=== PATIENT | male | born 1955 | race Caucasian/White ===

== ENCOUNTER 2016-08-20 08:56 | Observation (INO) | payer OTHER ==
[2016-08-20] MEDS ORDERED: DIAZEPAM 5 MG TAB PO ONE (09:00)
[2016-08-20] MEDS ORDERED: FAMOTIDINE 20 MG TAB PO ONE (09:00)
[2016-08-20] MEDS ORDERED: diphenhydrAMINE 25 MG CAP PO ONE ×2 (09:00→09:18)
[2016-08-20] MEDS ORDERED: NS 1,000 ML IV ONE (09:00)
[2016-08-20] MEDS ORDERED: ASPIRIN EC 325 MG TAB PO ONE ×2 (09:00→09:18)
[2016-08-20] MEDS ORDERED: FAMOTIDINE 20 MG TAB ONE (09:18)
[2016-08-20] MEDS ORDERED: DIAZEPAM 5 MG TAB ONE (09:19)
--- NOTE | 2016-08-20 09:21 | CPEKG ---
Heart Rate: 91 RR Interval: 659 QRSD Interval: 90 QT Interval: 352 QTC Interval: 434 QRS Nucla: -50 T Wave Nucla: -12 EKG Severity - ABNORMAL ECG - EKG Impression: ATRIAL FIBRILLATION, V-RATE 65-122 EKG Impression: INFERIOR INFARCT, AGE INDETERMINATE Electronically Signed By: Jg Simmons 20-Aug-2016 19:38:57
[2016-08-20 09:50] LABS: ABSOLUTE IMMATURE GRANULOCYTES 0.08 10^3/uL (0.00-0.10); ADD DIFF? NO; ADD MORPH? NO; ADD SCAN? NO; ATYPICAL LYMPHOCYTE FLAG 10 (0-99); FRAGMENT RBC FLAG 0 (0-99); HEMATOCRIT 47.3 % (40.0-51.0); HEMOGLOBIN 15.9 g/dL (13.7-17.5); LEFT SHIFT FLG 0 (0-99); LIPEMIA HEMOLYSIS FLAG 80 (0-99); MEAN CELL HEMOGLOBIN 28.8 pg (27.9-34.1); MEAN CELL HEMOGLOBIN CONCENTR. 33.6 g/dL (32.4-36.7); MEAN CELL VOLUME 85.5 fL (81.5-99.8); MEAN PLATELET VOLUME 9.8 fL (8.7-11.7); PLATELET CLUMPS FLAG 0 (0-99); PLATELET COUNT 250 10^3/uL (150-400); RED BLOOD CELL COUNT 5.53 10^6/uL (4.40-6.38); RED CELL DISTRIBUTION WIDTH 15.6 % (11.5-15.2)
[2016-08-20 09:59] LABS: INR 1.43 (0.83-1.16); PROTIME(PATIENT) 17.4 SEC (12.0-15.0)
[2016-08-20 10:37] LABS: ANION GAP 7 mEq/L (8-16); CALCIUM 8.5 mg/dL (8.5-10.4); CARBON DIOXIDE 26 mEq/l (22-31); CHLORIDE 109 mEq/L (97-110); CHOLESTEROL 256 mg/dL (140-220); CHOLESTEROL/HDL RATIO 6.74 RATIO (1.00-4.97); CREATININE 0.9 mg/dL (0.7-1.3); GLOMERULAR FILTRATION RATE > 60; GLUCOSE 94 mg/dL (70-100); HIGH DENSITY LIPOPROTEIN 38 mg/dL (40-65); LDL/HDL RATIO 5.11 RATIO (1.00-3.64); LOW DENSITY LIPOPROTEIN 194 mg/dL (80-100); MAGNESIUM 2.1 mg/dL (1.6-2.3); NON-HIGH DENSITY LIPOPROTEIN 218 mg/dL (90-129); POTASSIUM 4.5 mEq/L (3.5-5.2); SODIUM 142 mEq/L (134-144); TRIGLYCERIDE 123 mg/dL (40-150); VERY LOW DENSITY LIPOPROTEINS 24 mg/dL (8-25)
[2016-08-20 10:41] LABS: DIGOXIN 0.5 ng/mL (0.8-2.0)
[2016-08-20] MEDS ORDERED: LIDOCAINE 1% 30 ML SDV ONE (10:45)
[2016-08-20] MEDS ORDERED: IOPAMIDOL (ISOVUE-370) 150 ML BTL IV ONE ×2 (10:46→11:42)
[2016-08-20] MEDS ORDERED: fentaNYL 100 MCG/2 ML INJ ONE ×2 (10:46→11:38)
[2016-08-20] MEDS ORDERED: MIDAZOLAM 2 MG/2 ML VIAL ONE ×2 (10:46→11:38)
[2016-08-20] MEDS ORDERED: BIVALIRUDIN 250 MG/5 ML VIAL IV ONE (11:42)
[2016-08-20] MEDS ORDERED: CLOPIDOGREL BISULFATE 75 MG TAB ONE (12:16)
[2016-08-20] MEDS ORDERED: HYDROCODONE/APAP 5/325 TAB PO PRN (12:38)
[2016-08-20] MEDS ORDERED: LORazepam 2 MG/ML INJ IVP PRN (12:38)
[2016-08-20] MEDS ORDERED: ATROPINE SULFATE 1 MG/10 ML SYR IVP PRN (12:38)
[2016-08-20] MEDS ORDERED: NITROGLYCERIN 0.4 MG BTL SL PRN (12:38)
[2016-08-20] MEDS ORDERED: TEMAZEPAM 15 MG CAP PO PRN (12:38)
[2016-08-20] MEDS ORDERED: OXYCODONE/APAP 5/325 TAB PO PRN (12:38)
[2016-08-20] MEDS ORDERED: CLOPIDOGREL BISULFATE 75 MG TAB PO ONE (12:38)
[2016-08-20] MEDS ORDERED: ONDANSETRON 4 MG/2 ML VIAL IVP PRN (12:38)
--- NOTE | 2016-08-20 12:45 | CPEKG ---
Heart Rate: 100 RR Interval: 600 QRSD Interval: 86 QT Interval: 388 QTC Interval: 501 QRS [place]: -36 T Wave [place]: 31 EKG Severity - ABNORMAL ECG - EKG Impression: ATRIAL FIBRILLATION, V-RATE 86-119 EKG Impression: INFERIOR INFARCT, AGE INDETERMINATE EKG Impression: PROLONGED QT INTERVAL WHEN CORRECTED FOR RATE U WAVE MAY CONFOUND Electronically Signed By: Jg Simmons 20-Aug-2016 19:39:53
[2016-08-20] MEDS ORDERED: predniSONE 1 MG TAB PO SCH (18:00)
[2016-08-20] MEDS ORDERED: DIGOXIN 250 MCG TAB PO ONE (19:00)
--- NOTE | 2016-08-20 21:27 | CPIP ---
[f rep st] INVASIVE CARDIAC PROCEDURE DATE OF PROCEDURE: 08/20/2016 PROCEDURES: 1. Coronary angiography. 2. Left ventriculography. 3. Stenting of right coronary artery with Promus drug-eluting stent. INDICATIONS: 1. Class 2-3 angina. 2. Abnormal nuclear stress test with inferior ischemia that is intermediate risk in severity. ACCESS: The patient was prepped and draped in a sterile fashion. 1% lidocaine was used to anestheti ze the right inguinal region. A 6-Honduran introducer sheath was placed selectively into the right com mon femoral artery via modified Seldinger technique. CORONARY ANGIOGRAPHY: A 6-Honduran JL4 was advanced to left main coronary artery and images obtained. The left main coronary artery bifurcated into the LAD and circumflex coronary arteries. The left ma in coronary artery was relatively short. The left main coronary artery appeared normal. The left an terior descending coronary artery gave rise to one prominent diagonal branch. The left anterior desc ending coronary artery was diffusely diseased. In the mid vessel, there was a segmental 50% stenosis present. The first diagonal artery was a large vessel. The first diagonal artery had mild diffuse disease throughout the proximal segment. There was no stenosis greater than 20%. The circumflex cor onary artery was a large vessel. The circumflex coronary artery was a nondominant circumflex coronar y artery and had a complement of 2 OM branches. The circumflex coronary artery appeared normal. The OM1 had a proximal 20% stenosis. The OM2 had a proximal 10% stenosis present. A 6-Honduran JR4 was a dvanced to the right coronary artery and images obtained. The right coronary artery was dominant. T he right coronary artery was previously stented in the mid 1 segment. The previously placed stent wa s widely patent with mild in-stent restenosis. In the mid 2 segment, there is an eccentric plaque pr esent approaching 70% to 80% in severity. QCA was performed demonstrating a 79% stenosis. LEFT VENTRICULOGRAPHY: A 6-Honduran pigtail catheter was advanced in the left ventricle and images obt ained. The left ventricle was normal size and had normal systolic function with an estimated ejectio n fraction of 60%. There were no segmental wall motion abnormalities. PERCUTANEOUS CORONARY INTERVENTION: Right coronary artery: A 6-Honduran JR4 was advanced to the right coronary artery and images obtained. Angiography confirmed the presence of a high-grade lesion invo lving the mid 2 segment of the vessel. A loose wire was placed in the distal vessel and position rah ified by angiography. A 3.5 x 28 Synergy drug-eluting stent was then placed across the lesion and de ployed at 16 atmospheres. Followup angiography demonstrated SURI-3 flow and no residual stenosis. T he distal portion of the stent appeared to be inadequately expanded. A 4.0 x 15 Quantum Meeker was taken into the distal portion of the stent and deployed at 18 atmospheres. Followup angiography dem onstrated SURI-3 flow and no residual stenosis. COMPLICATIONS: None. CONCLUSIONS: 1. Two-vessel coronary artery disease. 2. Normal left ventricular systolic function. 3. Status post successful percutaneous coronary intervention of the right coronary artery. /[id number]/MODL
[2016-08-21 03:43] VITALS: O2SAT 92
[2016-08-21 04:46] LABS: % IMMATURE GRANULYOCYTES 0.7 % (0.0-1.1); ABSOLUTE IMMATURE GRANULOCYTES 0.06 10^3/uL (0.00-0.10); ADD DIFF? NO; ADD MORPH? NO; ADD SCAN? NO; ATYPICAL LYMPHOCYTE FLAG 0 (0-99); FRAGMENT RBC FLAG 0 (0-99); HEMATOCRIT 46.4 % (40.0-51.0); HEMOGLOBIN 15.5 g/dL (13.7-17.5); LEFT SHIFT FLG 0 (0-99); LIPEMIA HEMOLYSIS FLAG 80 (0-99); MEAN CELL HEMOGLOBIN 29.1 pg (27.9-34.1); MEAN CELL HEMOGLOBIN CONCENTR. 33.4 g/dL (32.4-36.7); MEAN CELL VOLUME 87.1 fL (81.5-99.8); MEAN PLATELET VOLUME 10.2 fL (8.7-11.7); PLATELET CLUMPS FLAG 0 (0-99); PLATELET COUNT 231 10^3/uL (150-400); RED BLOOD CELL COUNT 5.33 10^6/uL (4.40-6.38); RED CELL DISTRIBUTION WIDTH 15.9 % (11.5-15.2)
[2016-08-21 04:51] LABS: ANION GAP 6 mEq/L (8-16); CALCIUM 8.4 mg/dL (8.5-10.4); CARBON DIOXIDE 24 mEq/l (22-31); CHLORIDE 109 mEq/L (97-110); CREATININE 0.9 mg/dL (0.7-1.3); GLOMERULAR FILTRATION RATE > 60; GLUCOSE 97 mg/dL (70-100); POTASSIUM 4.8 mEq/L (3.5-5.2); SODIUM 139 mEq/L (134-144)
--- NOTE | 2016-08-21 05:54 | CPEKG ---
Heart Rate: 78 RR Interval: 769 QRSD Interval: 96 QT Interval: 364 QTC Interval: 415 QRS [place]: -48 T Wave [place]: 38 EKG Severity - ABNORMAL ECG - EKG Impression: ATRIAL FIBRILLATION, V-RATE 60-106 EKG Impression: INFERIOR INFARCT, AGE INDETERMINATE Electronically Signed By: Jg Simmons 21-Aug-2016 12:15:49
[2016-08-21 07:59] VITALS: BP 126/89; PULSE 78; RESP 21; TEMP 98.1
[2016-08-21] MEDS ORDERED: QUINAPRIL HCL 40 MG PO SCH (09:00)
[2016-08-21] MEDS ORDERED: LISINOPRIL 20 MG TAB PO SCH (09:00)
[2016-08-21] MEDS ORDERED: DILTIAZEM CD 180 MG CAP PO SCH (09:00)
[2016-08-21] MEDS ORDERED: ASPIRIN EC 325 MG TAB PO SCH (09:00)
[2016-08-21] MEDS ORDERED: CLOPIDOGREL BISULFATE 75 MG TAB PO SCH (09:00)
[2016-08-21] MEDS ORDERED: DILTIAZEM HCL 180 MG PO SCH (09:00)
[2016-08-21] MEDS ORDERED: DIGOXIN 250 MCG TAB PO SCH (10:00)
--- NOTE | 2016-08-21 12:38 | GDS ---
[f rep st] DISCHARGE SUMMARY DISCHARGE DIAGNOSES: 1. New onset chest pain, worrisome for CCS class 3 angina, status post left heart catheterization an d percutaneous intervention to the mid right coronary artery on this admission. 2. Dyslipidemia with severe intolerance of statin with noted myalgias. 3. Hypertension. 4. Permanent atrial fibrillation, on warfarin for anticoagulation. 5. Obstructive sleep apnea with compliant use of CPAP. PROCEDURES: 1. 08/20/2016 left heart catheterization which showed a normal-appearing left main, left anterior de scending with 1 prominent diagonal branch, LAD with diffuse disease and mid vessel segmental stenosis of 50%. The first diagonal had mild disease throughout the proximal segment with no stenosis greate r than 20%. The circumflex was a large vessel and appeared normal. There was 1 obtuse marginal with proximal stenosis of 20%. Second obtuse marginal had proximal 10% stenosis. Right coronary artery is dominant and shows a previously stented mid 1 segment. This stent is widely patent with mild in-s tent restenosis. The mid 2 segment has an eccentric plaque of 70% to 80%. QCA shows 79% stenosis. Angiography confirmed high-grade stenosis. He proceeded to 3.5 x 28 Synergy drug-eluting stent place ment. PHYSICIANS: Dr. Morton for intervention. 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 BRIEF HISTORY: Please see dictated note by Dr. Santos for complete details. In brief, the patient i s a 60-year-old male with a history of CAD with PCI to RCA in 2012, WIL, hypertension, and dyslipidem ia, who was seen in outpatient cardiology for chest pain. A nuclear stress test was obtained and nahomy wed an inferior wall reversible defect. He proceeded to left heart catheterization, with results as dictated above. HOSPITAL COURSE: 1. CCS class 3 angina. He is status post percutaneous intervention to the right coronary artery, di stal to previously placed stent. He will be placed on Plavix for a minimum of [address] Morton did review with him data that potentially Plavix may be stopped as early as 6 months. We ar e still awaiting data for [place] studies. 2. Dyslipidemia. He has been severely intolerant to statins. His cholesterol profile on this admis davidson shows total cholesterol 256, LDL 194, HDL of 38, triglycerides of 123. He has agreed to try col esevelam. We are in the process of trying to get him pre-approved for PCSK9 inhibitor. 3. Hypertension. His blood pressures have been mild to moderately elevated with readings in the 142 /87 range overnight. He was advised on home monitoring of his blood pressure. 4. Atrial fibrillation. He is on Coumadin. He is therefore not started on aspirin at this point. We will plan on close followup on his INR. He is to see [facility] in 5 days' time. His INR wa s 1.43 on 08/20/2016. DISCHARGE PHYSICAL EXAM: VITAL SIGNS: Blood pressure 126/89, heart rate 78, respirations 21, O2 sat uration 92%. GENERAL: He is a pleasant male in no apparent distress. EYES: PERRL. HEART: Irregu larly irregular with no rubs, gallops, or murmurs auscultated. LUNGS: Clear. ABDOMEN: Right groin site without ecchymosis or bruit auscultated. Groin sticker was removed. RESULTS PENDING: None. DIET: Cardiac diet recommended. ACTIVITY: Groin precautions were reviewed. He is not to return to work at [employer] for at [employer] t 2 weeks. We will plan to see him back in clinic prior to clearing him for return to work. DISCHARGE MEDICATIONS: Please see medication reconciliation for complete details. His new medicatio ns are clopidogrel and colesevelam. He is being continued on his home digoxin, prednisone, diltiazem , quinapril, warfarin. FOLLOWUP INSTRUCTIONS: 1. Groin precautions. 2. Follow up in clinic on 08/31/2016. /[id number]/MODL
[2016-08-21] MEDS ORDERED: DIGOXIN 125 MCG TAB PO SCH (18:00)
[2016-08-22] MEDS ORDERED: COLESEVELAM HCL 625 MG TAB PO SCH (09:00)
== END 2016-08-21 11:33 | disposition home or self-care (01) ==
LOC: FCATH 08:56 → F2W 12:21
PROVIDERS: ADMIT Internal Medicine Cardiovascular Disease; ATTEND Internal Medicine Cardiovascular Disease
PROC: 027034Z Dilation of Coronary Artery, One Artery with Drug-eluting Intraluminal Device, Percutaneous Approach (ICD-10-PCS; principal; 2016-08-20)
PROC: 4A023N7 Measurement of Cardiac Sampling and Pressure, Left Heart, Percutaneous Approach (ICD-10-PCS; principal; 2016-08-20)
PROC: B2151ZZ Fluoroscopy of Left Heart using Low Osmolar Contrast (ICD-10-PCS; principal; 2016-08-20)
PROC: B2111ZZ Fluoroscopy of Multiple Coronary Arteries using Low Osmolar Contrast (ICD-10-PCS; principal; 2016-08-20)
DX: I25.119 Atherosclerotic heart disease of native coronary artery with unspecified angina pectoris (principal); T82.857A Stenosis of other cardiac prosthetic devices, implants and grafts, initial encounter; E78.5 Hyperlipidemia, unspecified; I10 Essential (primary) hypertension; I48.2 Chronic atrial fibrillation; G47.33 Obstructive sleep apnea (adult) (pediatric); Z79.01 Long term (current) use of anticoagulants
CPT/HCPCS: 92928; 93005; 93458; C1725; C1769; C1887; G0378; C1874; C9600; J0461; J0583; J2250; J3010; Q9967

== ENCOUNTER → 2017-09-29 | Outpatient (CLI) | payer OTHER | LOC: CIMAGING 11:30 | PROVIDERS: ATTEND Family Medicine | DX: M25.812 Other specified joint disorders, left shoulder (principal) | CPT/HCPCS: 73030-PO ==